=== PATIENT | female | born 1945 | race Caucasian/White ===

== ENCOUNTER 2018-02-21 17:43 | Emergency (ER) | payer BC, MEDICARE, OTHER ==
[~2018-02-21] VITALS: Ht 160 cm; Wt 58.5 kg
--- NOTE | 2018-02-21 18:36 | NUR ---
AWAITING DFOR MD SAUCEDO.
[2018-02-21] MEDS ORDERED: DEXAMETHASONE SOD PHOSPHATE 4 MG INJ IM ONE (19:00)
[2018-02-21] MEDS ORDERED: DEXAMETHASONE SOD PHOSPHATE 10 MG INJ ONE (19:05)
--- NOTE | 2018-02-21 19:12 | NUR ---
MSE COMPLETED, MEDS ADMIN, PT D/'D HOME, ACI/RX X2 GIVEN, PT AMBULATED W/O DIFF/TOOK ALL BELONGINGS.
[2018-02-21 19:13] VITALS: BP 135/84
== END 2018-02-21 19:14 | disposition home or self-care (01) ==
LOC: ER 17:47
DX: S80.862A Insect bite (nonvenomous), left lower leg, initial encounter (principal); S80.861A Insect bite (nonvenomous), right lower leg, initial encounter; S60.562A Insect bite (nonvenomous) of left hand, initial encounter; S60.561A Insect bite (nonvenomous) of right hand, initial encounter; S30.861A Insect bite (nonvenomous) of abdominal wall, initial encounter; S30.860A Insect bite (nonvenomous) of lower back and pelvis, initial encounter; S10.96XA Insect bite of unspecified part of neck, initial encounter; S00.86XA Insect bite (nonvenomous) of other part of head, initial encounter; Z88.8 Allergy status to other drugs, medicaments and biological substances; W57.XXXA Bitten or stung by nonvenomous insect and other nonvenomous arthropods, initial encounter; Y93.89 Activity, other specified; Y92.89 Other specified places as the place of occurrence of the external cause; Y99.8 Other external cause status
CPT/HCPCS: 96372; 99283; A4663; J1100